=== PATIENT | male | born 1965 | race Caucasian/White ===

== ENCOUNTER 2025-01-06 19:03 | Emergency (ER) | payer OTHER, SELFPAY ==
[2025-01-06 19:06] VITALS: BP 124/95
--- NOTE | 2025-01-06 21:23 | ED.GENMED ---
History of Present Illness
General
Chief Complaint: Anxiety
Source: patient
Exam Limitations: none
Time Seen by Provider: 01/06/25 20:30
Nursing documentation reviewed up to this point in time: agreed with
History of Present Illness
History of Present Illness:
Patient is a 59-year-old male who presents to the ER for evaluation of extreme anxiety. For the past 2 weeks patient started with multiple episodes of panic attacks and anxiety. Prior to arrival patient had a panic attack and was not able to get a
hold of himself which is why called EMS. did give him one of her tablets of Xanax which has seemed to help because patient feels much calmer now.
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
He reports 2 weeks ago this started' out of the blue,', he reports he could not sleep throughout the night and has not been able to get a good night sleep since. He will have episodes where he completely has a panic attack and just cannot
concentrate and has to take deep breaths.
When his mom was very ill he was on Prozac but gradually weaned himself off. He restarted that a week ago. He did leave a message on a therapist voicemail today but did not hear back. He denies any suicidal homicidal thoughts.
During my exam patient feels much calmer however reports she had an old Xanax and gave him a tablet which seemed to help with his symptoms.
Review of Systems
Review of Systems
Allergies reviewed?: Yes
All Other Systems: ROS reviewed and negative except as documented in HPI and ROS
Constitutional: Reports no symptoms
Respiratory: Reports no symptoms
Cardiac: Reports no symptoms
ABD/GI: Reports no symptoms
: Reports no symptoms
Musculoskeletal: Reports no symptoms
Skin: Reports no symptoms
Neurological: Reports no symptoms
Psychiatric: Reports anxiety; Denies suicidal or hallucinations
Phy Exam
General Physical Exam
General Presentation: no apparent distress
General age: appears stated age
General Skin: warm and dry
General Habitus: normal
General Mental: alert
General Hydration: appears well hydrated
Cardiovascular Exam
Cardiovascular Exam: regular rate/rhythm, no murmur and normal peripheral pulses
Pulmonary Exam
Pulmonary Exam: lungs clear and no respiratory distress
Neurological Exam
Neurological Exam: alert and oriented x3
Musculoskeletal Exam
Musculoskeletal Exam: full ROM
Skin Exam
Skin Exam: normal color and warm/dry
Psychiatric Exam
Psychiatric Exam: normal mood/affect
Course
Orders/Labs/Results
Orders:
Orders
01/06/25 19:09
ECG [Electrocardiogram (*1)] Urgent
Reason for Study: Other
Other Reason for Exam: anxiety
EKG- Treatment ONCE
Vital Signs
Initial and Last Documented VS:
Initial Vital Signs
Temp Pulse Resp BP Pulse Ox
97.8 F 74 20 124/95 99
01/06/25 19:06 01/06/25 19:06 01/06/25 19:06 01/06/25 19:06 01/06/25 19:06
Last Documented Vital Signs
Temp Pulse Resp BP Pulse Ox
97.8 F 74 20 124/95 99
01/06/25 19:06 01/06/25 19:06 01/06/25 19:06 01/06/25 19:06 01/06/25 19:06
MDM/Problems Addressed
Differential Diagnosis Includes:
not limited to: anxiety
MDM/Problems Addressed:
Symptoms are consistent with anxiety. Patient restarted himself back on Prozac and has been in contact with his family doctor .
He was given outpatient resources by crisis. He is not suicidal. His did give him a Xanax prior to arrival which did help with symptoms will give patient small course of Ativan just to take as needed . Discussed with patient close
outpatient follow family doctor and therapy. He has no symptoms of suicidal thoughts.
*Pulse Oximetry
Patient hypoxic: no
*Critical Care Note
Total Time (30-74mins, 75-104mins- exclusive of procedures): Not Applicable
ED Attending Note
-
Portions of this chart may have been created with voice recognition software.� Occasional wrong word or��sound alike� substitutions may have occurred due to the inherent limitations of voice recognition software.
Discharge Plan
Departure
Patient Disposition: Home (Routine Discharge)
Date of Disposition: 01/06/25
Time of Disposition: 22:20
Patient with high blood pressure during this ER visit?: Yes
Condition: Fair
Covid-19: Not Applicable
Discharge Problem:
Anxiety
Instructions: Anxiety, Adult (DC), BLOOD PRESSURE
Prescriptions:
New
lorazepam [Ativan] 0.5 mg tablet
0.5 mg PO TID PRN (Reason: anxiety) Qty: 10 0RF
Referrals:
Yony Healy DO [Family Provider] -
Activity Restrictions/Additional Instructions:
As discussed please follow-up with your family doctor as well as outpatient resources for further evaluation of anxiety. You May continue your Prozac . A small prescription for Ativan was sent to pharmacy to take only as directed as needed. No
alcohol or driving while taking this medication.
Return if any worsening of symptoms
Interventions
Interventions:
*General Assessment Last Done: 01/06/25 19:06
Discharge Date and Time
Print Language: MALAY
== END 2025-01-06 22:30 | disposition home or self-care (01) ==
LOC: EMR 19:03
PROVIDERS: EMERGENCY PHYSICIAN Emergency Medicine; FAMILY PHYSICIAN Family Medicine
DX: F41.9 Anxiety disorder, unspecified (principal); R03.0 Elevated blood-pressure reading, without diagnosis of hypertension
CPT/HCPCS: 99283; 93005